=== PATIENT | male | born 1955 | race Caucasian/White ===

== ENCOUNTER 2019-04-28 14:53 | Emergency (ER) | payer BC ==
--- NOTE | 2019-04-28 15:44 | ED ---
Lower Extremity Injury HPI - General Chief Complaint: Extremity Injury, Lower Stated Complaint: Swollen leg/foot Time Seen by Provider: 04/28/19 15:28 Source: patient, RN notes reviewed Mode of arrival: ambulatory Limitations: no limitations - History of Present Illness Initial Comments: This a 63-year-old male presents emergency Department with chief complaint a concern of blood clot in his left leg. Patient states that he's had a history of DVT. Patient states that he's had some swelling to his left leg and mild discomfort. Patient states it is worse with movement. Patient also states he has underlying diabetes and has neuropathy of his feet. Patient states that he noticed the wound started a few days ago. Patient states blood sugar has been running well no fevers chills denies any other complaints at this time. - Related Data Previous Rx's Medication Instructions Recorded Cephalexin [Keflex] 500 mg PO Q6HR #40 cap 04/28/19 Sulfamethox-Tmp 800-160Mg [Bactrim 1 each PO Q12HR #20 tab 04/28/19 Ds] Allergies Allergy/AdvReac Type Severity Reaction Status Date / Time No Known Allergies Allergy Verified 04/28/19 15:22 Review of Systems ROS Statement: Those systems with pertinent positive or pertinent negative responses have been documented in the HPI. ROS Other: All systems not noted in ROS Statement are negative. Past Medical History Past Medical History: Diabetes Mellitus, Deep Vein Thrombosis (DVT) History of Any Multi-Drug Resistant Organisms: None Reported Past Surgical History: No Surgical Hx Reported Past Psychological History: No Psychological Hx Reported Smoking Status: Current some day smoker Past Alcohol Use History: Occasional Past Drug Use History: Marijuana General Exam Limitations: no limitations General appearance: alert, in no apparent distress Head exam: Present: atraumatic, normocephalic, normal inspection Respiratory exam: Present: normal lung sounds bilaterally. Absent: respiratory distress, wheezes, rales, rhonchi, stridor Cardiovascular Exam: Present: regular rate, normal rhythm, normal heart sounds. Absent: systolic murmur, diastolic murmur, rubs, gallop, clicks Extremities exam: Present: other (Left leg there is diffuse edema with mild erythema, tenderness to palpation equal pedal pulses, there is no open wound in the ball of his foot with no surrounding erythema or purulent drainage this is a superficial wound) Neurological exam: Present: alert, oriented X3, CN II-XII intact, reflexes normal. Absent: motor sensory deficit Skin exam: Present: warm, dry, intact, normal color. Absent: rash Course Vital Signs 04/28/19 15:22 Temperature 98.2 F Pulse Rate 86 Respiratory 18 Rate Blood Pressure 134/86 O2 Sat by Pulse 99 Oximetry Medical Decision Making - Medical Decision Making 63-year-old male presented for concern for DVT to his left lower extremity. Patient is a chronic DVT no acute DVT. Patient's baseline is more related to cellulitis, open foot wound. Patient will be placed on antibiotics. Patient we discharged on Bactrim and Keflex Disposition Clinical Impression: Wound of foot, Left leg cellulitis Disposition: HOME SELF-CARE Condition: Stable Instructions (If sedation given, give patient instructions): Cellulitis (ED) Additional Instructions: Please return to the Emergency Department if symptoms worsen or any other concerns. Prescriptions: Sulfamethox-Tmp 800-160Mg [Bactrim Ds] 1 each PO Q12HR #20 tab Cephalexin [Keflex] 500 mg PO Q6HR #40 cap Is patient prescribed a controlled substance at d/c from ED?: No Referrals: Nonstaff,Physician [Primary Care Provider] - 1-2 days Time of Disposition: 16:30
--- NOTE | 2019-04-28 16:13 | US ---
EXAMINATION TYPE: US venous doppler duplex LE LT DATE OF EXAM: 04/28/2019 4:01 PM COMPARISON: NONE CLINICAL HISTORY: Pain. Left leg pain and swelling. Patient states hx of blood clot in left leg years ago. Not on blood thinners now. SIDE PERFORMED: Left TECHNIQUE: The lower extremity deep venous system is examined utilizing real time linear array sonog charleen with graded compression, doppler sonography and color-flow sonography. VESSELS IMAGED: External Iliac Vein (EIV) Common Femoral Vein Deep Femoral Vein Greater Saphenous Vein * Femoral Vein Popliteal Vein Small Saphenous Vein * Proximal Calf Veins (* superficial vessels) Partial compression Femoral Vein to Popliteal vein. Threading flow seen in Popliteal Vein proximal to distal. Left Leg: Appears to be non occluding old thrombus seen. IMPRESSION: There is evidence of mild chronic deep venous thrombosis in the left leg. No evidence of acute deep venous thrombosis.
--- NOTE | 2019-04-28 16:35 | XR ---
EXAMINATION TYPE: XR foot complete LT DATE OF EXAM: 04/28/2019 COMPARISON: NONE HISTORY: Pain TECHNIQUE: 3 views FINDINGS: Metatarsals are intact. I see no fracture nor dislocation. Joint spaces are fairly normal. There is a plantar calcaneal spur. There is a 5 x 1 mm linear density projected over the plantar aspe ct of the forefoot soft tissues that could be a foreign body. IMPRESSION: Calcaneal spurring. No fracture seen. Possible foreign body.
[2019-04-28 16:46] VITALS: BP 151/83; PULSE 85; RESP 16; TEMP 98.3
== END 2019-04-28 16:45 | disposition home or self-care (01) ==
LOC: EC 14:53
DX: L03.116 Cellulitis of left lower limb (principal); S91.302A Unspecified open wound, left foot, initial encounter; E11.40 Type 2 diabetes mellitus with diabetic neuropathy, unspecified; F17.200 Nicotine dependence, unspecified, uncomplicated; Z86.718 Personal history of other venous thrombosis and embolism; X58.XXXA Exposure to other specified factors, initial encounter
CPT/HCPCS: 99284